=== PATIENT | female | born 1985 | race Asian ===

== ENCOUNTER 2022-07-25 07:18 | Outpatient (CLI) | payer OTHER | END 2022-07-25 07:19 | disposition home or self-care (01) | LOC: DI 07:18 | PROVIDERS: ATTEND Family Medicine | DX: I10 Essential (primary) hypertension (principal) | CPT/HCPCS: 93306 ==

== ENCOUNTER 2023-10-01 10:03 | Outpatient (CLI) | payer OTHER ==
--- NOTE | 2023-10-02 08:50 | Ultrasound Report ---
LIMITED ULTRASOUND OF LEFT BREAST: 10/01/2023 CLINICAL: Patient returns today to evaluate a focal asymmetry in the left breast. Comparison is made to exams dated: 10/01/2023 mammogram - [facility], 05/24/2020 [facility] [place], and 05/24/2020 ultrasound - [facility], [facility] [place]. Color flow and real-time ultrasound of the left breast 4 o'clock and 8-9 o'clock regions were perfor med. Villatoro scale images of the real-time examination were reviewed. There is a benign 1.7 cm x 1.3 cm x 1 cm oval mass with a circumscribed margin in the left breast at 4 o'clock posterior depth 8 cm from the nipple. This oval mass is hypoechoic. This abnormality is i ncreased in size and correlates with mammography findings and the previous biopsy. This finding was previously described at the 3 o'clock position on the ultrasound from 05/18/2020. IMPRESSION: BENIGN There is no sonographic evidence of malignancy. The 1.7 cm x 1.3 cm x 1 cm oval mass in the left breast is consistent with a fibroadenoma and is mika gn. There is no abnormality seen in the left breast to correspond with the mammography finding at 8 o'sandi ck which is consistent with normal fibroglandular tissue. Return to annual mammogram screening schedule is recommended. This exam was interpreted at Station ID: [id number]. Electronically Signed By: Bebo campos/vincent:10/01/2023 13:20:43 letter sent: No_Letter Ultrasound BI-RADS: 2 Benign BI-RADS CATEGORY: (2) - 2 RECOMMENDATION: (ANNUAL) - Recommend routine annual screening mammography. [id number] return to screening LATERALITY: (B)
--- NOTE | 2023-10-02 08:50 | Mammography Report ---
BILATERAL DIGITAL DIAGNOSTIC MAMMOGRAM 3D/2D: 10/01/2023 CLINICAL: Follow up of left fibroadenoma. Due for bilateral exam. Family history of breast cancer. Comparison is made to exams dated: 05/24/2020 mammogram and 05/24/2020 ultrasound - [facility] [place]. Both breasts are extremely dense, which lowers the sensitivity of mammography (category d />75% gland ular tissue). There is an oval equal density mass with a circumscribed margin in the left breast at 4 o'clock middl e depth. This correlates with the biopsy. There also is a possible oval focal asymmetry with an obscured and indistinct margin in the left lucinda st at 8 o'clock middle depth. No other significant masses, calcifications, or other findings are seen in either breast. IMPRESSION: INCOMPLETE: NEEDS ADDITIONAL IMAGING EVALUATION The oval equal density mass in the left breast at 4 o'clock middle depth is indeterminate. An ultras ound is recommended. The possible oval focal asymmetry in the left breast at 8 o'clock middle depth is consistent with fib roglandular tissue or an abscess and is indeterminate. An ultrasound is recommended. Based on Tyrer-Cuzick model (a risk assessment model), the patient's lifetime risk is 26.2% and her 1 0 year risk is 3.2%. If a patient has an elevated risk, a more comprehensive evaluation should be con sidered and/or a referral to a genetic counselor. The [employer], [employer], and NCCN Guidelines advise the consideration of Breast MRI as an adjunct to screening mammog margaret in patients whose "Lifetime risk to develop breast cancer" is 20% or higher. This exam was interpreted at Station ID: [id number]. NOTE: For mammograms, a report in lay terms will be sent to the patient. Approximately 15% of breast malignancies will not be visualized mammographically. In the management of a palpable breast mass, a negative mammogram must not discourage biopsy of a clinically suspicious lesion. Electronically Signed By: Bebo campos/vincent:10/01/2023 13:06:49 ACR BI-RADS Category 0: Incomplete 3340F PARENCHYMAL PATTERN: (VD) - The breast(s) demonstrate(s) extremely dense parenchyma, limiting the sen sitivity of mammography. BI-RADS CATEGORY: (0) - 0 Ultrasound [id number] Immediate follow-up LATERALITY: (L)
== END 2023-10-01 10:04 | disposition home or self-care (01) ==
LOC: DI 10:03
PROVIDERS: ATTEND Nurse Practitioner Family
DX: R92.8 Other abnormal and inconclusive findings on diagnostic imaging of breast (principal); Z80.3 Family history of malignant neoplasm of breast